=== PATIENT | female | born 1980 | race Caucasian/White ===

== ENCOUNTER 2016-07-13 02:48 | Emergency (ER) | payer OTHER ==
[~2016-07-13] VITALS: Ht 162.6 cm; Wt 115.6 kg
[~2016-07-13 02:48] MED LIST: ABILIFY5 MG PO; ACTOS15 MG PO; ADVAIR 250/501 DISK IH; ADVAIR HFA120 INHALA IH; ALBUTEROL17 GM IH; ANTI-DIARRHEA2 MG PO; AUGMENTIN875 MG PO; BACTRIM,SEPT1 TABLET PO; BENTYL10 MG PO; BENTYL20 MG PO; BRINTELLIX10 MG PO; BUPROPION XL300 MG PO; CEFTIN500 MG PO; CIPRO500 MG PO; CLONAZEPAM1 MG PO; Celexa PO; DELTASONE20 M1 PO; DESYREL100 MG PO; DICYCLOMINE HCL20 MG PO; DILAUDID2 MG PO; DURICEF500 MG PO; EFFEXOR XR150 MG PO; EFFEXOR75 MG PO; Effexor XR PO; FENOFIBRIC ACI135 MG PO; FLAGYL500 MG PO; FLEXERIL10 MG PO; FLOMAX0.4 MG PO; GLUCOPHAGE1000 MG PO; GLUCOPHAGE500 MG PO; Glucophage PO; HYDROCODON-ACE1 EAC7 PO; HYDROMORPHONE HC2 MG PO; JANUVIA100 MG PO; JANUVIA25 M1 PO; KEFLEX500 MG PO; KLONOPIN1 MG PO; LEVAQUIN500 MG PO; LEVOTHYROXINE150 MCG PO; LEVOTHYROXINE50 MCG PO; LISINOPRIL5 MG PO; LOMOTIL TABLET1 EACH PO; Levothroid,Synthroid PO; MEDROL DOSEPAK4 MG PO; METFORMIN HCL1000 MG PO; METFORMIN HCL500 MG PO; MORPHINE SULFAT30 M1 PO; MOTRIN600 MG PO; MS Contin PO; MS Contin,Oramorph S PO; MUCINEX DM ER1 EAC1 PO; Medrol Dosepak PO; NAPROSYN500 MG PO; NAPROXEN500 MG PO; PERCOCET 5/31 TABLET PO; PHENTERMINE H37.5 MG PO; PIOGLITAZONE HC30 MG PO; PREDNISONE10 MG PO; PREDNISONE20 MG PO; PREMARIN0.3 MG PO; PREMARIN0.625 MG PO; PRINIVIL5 MG PO; PROVENTIL,2.5 MG/0.5 IH; PROVENTIL,2.5 MG/3 M IH; PYRIDIUM100 MG PO; Percocet 5/325,Endoc PO; RECTASMOOTHE30 GM TP; REGLAN10 MG PO; ROBITUSSIN AC,T10 ML PO; Reglan PO; SYNTHROID75 MCG PO; TAMIFLU75 MG PO; TESSALON PERLE100 MG PO; TESSALON200 MG PO; TOPAMAX100 MG PO; TOPAMAX50 MG PO; TORADOL10 MG PO; TRAMADOL HCL50 MG PO; TRILIPIX135 MG PO; TRILIPIX45 MG PO; Tylenol Regular Stre PO; VENTOLIN HFA18 GM IH; WELCHOL625 MG PO; WELLBUTRIN SR150 MG PO; WELLBUTRIN XL150 MG PO; WELLBUTRIN XL300 MG PO; ZITHROMAX Z-PA250 MG PO; ZOFRAN ODT4 MG PO; ZOFRAN ODT8 MG PO; ZOFRAN4 MG PO; Zithromax PO; Zofran PO
[2016-07-13 03:14] LABS: HEMATOCRIT 36.7 % (36.0-46.0); MCH 27.3 PG (29.0-34.0); MCHC 33.2 G/DL (30.0-36.0); MCV 82.1 FL (83-99); PLATELET COUNT 285 K/uL (156-360); RBC DIS.WIDTH-CV 13.5 % (11.8-14.6); RBC DIS.WIDTH-SD 39.1 % (39-53); RED BLOOD COUNT 4.47 M/uL (3.80-5.20); WHITE BLOOD COUNT 8.1 K/uL (4.1-10.2)
[2016-07-13 03:22] LABS: CHLORIDE 101 mEq/L (99-109); POTASSIUM 3.7 mEq/L (3.7-5.4); SODIUM 136 mEq/L (136-147)
[2016-07-13 03:24] LABS: GLUCOSE 249 mg/dL (70-99)
[2016-07-13 03:25] LABS: ANION GAP 10 MEQ/L (2-14)
[2016-07-13 03:26] LABS: TOTAL BILIRUBIN 0.3 mg/dL (0.0-1.0)
[2016-07-13 03:27] LABS: ALKALINE PHOSPHATASE 74 IU/L (3-129)
[2016-07-13 03:28] LABS: GFR ESTIMATE (CALCULATED) > 59 mL/min/
[2016-07-13 03:29] LABS: UREA NITROGEN (BUN) 16 mg/dL (9-23)
[2016-07-13 03:36] LABS: QUANTITATIVE HCG < 4.0 MIU/ML
[2016-07-13 03:52] LABS: LIPASE 49 U/L (1.0-51.0)
[2016-07-13 04:09] LABS: ADD MIUA? YES; BILIRUBIN NEGATIVE; BLOOD NEGATIVE; COLOR YELLOW ((YELLOW)); GLUCOSE (STRIP) 100; KETONES NEGATIVE; LEUKOCYTES NEGATIVE; NITRITE NEGATIVE; PROTEIN (STRIP) >=300; SPECIFIC GRAVITY 1.029 (1.000-1.030); UROBILINOGEN 0.2 MG/DL (0.2-1.0)
[2016-07-13 04:43] LABS: EPITHELIAL CELLS 1+; RED BLOOD CELLS NONE SEEN /HPF (0-5); WHITE BLOOD CELLS 0-5 /HPF (0-5)
[2016-07-13 04:44] LABS: BACTERIA 1+; CASTS NONE SEEN /LPF; CRYSTALS NONE SEEN; MUCUS 2+; UCUL ADDED? NO
[2016-07-13 05:00] VITALS: BP 110/54
[2016-07-13] MEDS ORDERED: TRAMADOL HCL50 MG PO (05:09)
[2016-07-13] MEDS ORDERED: ZOFRAN8 MG PO (05:09)
[2016-07-13 05:12] LABS: INFLUENZA A VIRAL ANTIGEN NEGATIVE; INFLUENZA B VIRAL ANTIGEN NEGATIVE
== END 2016-07-13 05:54 | disposition home or self-care (01) ==
LOC: EME 02:48
PROVIDERS: Emergency Medicine
DX: M54.5 Low back pain (principal); R10.9 Unspecified abdominal pain; E86.0 Dehydration; E03.9 Hypothyroidism, unspecified; J45.909 Unspecified asthma, uncomplicated; E11.9 Type 2 diabetes mellitus without complications; Z79.4 Long term (current) use of insulin; Z87.442 Personal history of urinary calculi; Z88.8 Allergy status to other drugs, medicaments and biological substances; Z88.6 Allergy status to analgesic agent
CPT/HCPCS: 72131; 74177; 80053; 81003; 83690; 84702; 85027; 87502; 99281; 99285; J2270; J2405; J7030

== ENCOUNTER 2016-08-19 22:12 | Emergency (ER) | payer OTHER ==
[~2016-08-19] VITALS: Ht 162.6 cm; Wt 115.4 kg
[~2016-08-19 22:12] MED LIST changes: +ZOFRAN8 MG PO
[2016-08-19 22:41] LABS: HEMATOCRIT 34.8 % (36.0-46.0); MCH 27.4 PG (29.0-34.0); MCV 82.9 FL (83-99); MEAN PLAT.VOLUME 10.1 uM^3 (9.5-12.4); PLATELET COUNT 264 K/uL (156-360); RBC DIS.WIDTH-CV 13.5 % (11.8-14.6); RBC DIS.WIDTH-SD 39.5 % (39-53); WHITE BLOOD COUNT 7.8 K/uL (4.1-10.2)
[2016-08-19 22:50] LABS: CHLORIDE 105 mEq/L (99-109); SODIUM 138 mEq/L (136-147)
[2016-08-19 22:52] LABS: GLUCOSE 291 mg/dL (70-99)
[2016-08-19 22:53] LABS: ANION GAP 11 MEQ/L (2-14)
[2016-08-19 22:54] LABS: TOTAL BILIRUBIN 0.2 mg/dL (0.0-1.0)
[2016-08-19 22:55] LABS: ALKALINE PHOSPHATASE 68 IU/L (3-129)
[2016-08-19 22:56] LABS: GFR ESTIMATE (CALCULATED) > 59 mL/min/
[2016-08-19 22:57] LABS: UREA NITROGEN (BUN) 13 mg/dL (9-23)
[2016-08-19 23:06] LABS: QUANTITATIVE HCG < 4.0 MIU/ML
[2016-08-20 00:28] LABS: ADD MIUA? YES; BILIRUBIN NEGATIVE; BLOOD LARGE; COLOR YELLOW ((YELLOW)); GLUCOSE (STRIP) >=500; KETONES NEGATIVE; LEUKOCYTES NEGATIVE; NITRITE NEGATIVE; PROTEIN (STRIP) 100; SPECIFIC GRAVITY 1.023 (1.000-1.030); UROBILINOGEN 0.2 MG/DL (0.2-1.0)
[2016-08-20 00:38] LABS: BACTERIA NONE SEEN /HPF; EPITHELIAL CELLS RARE /HPF; MUCUS TRACE /LPF; RED BLOOD CELLS TNTC /HPF (0-5); UCUL ADDED? NO; WHITE BLOOD CELLS 15-20 /HPF (0-5)
[2016-08-20] MEDS ORDERED: KEFLEX500 MG PO (01:35)
[2016-08-20] MEDS ORDERED: PYRIDIUM100 MG PO (01:35)
[2016-08-20 01:46] VITALS: BP 159/93
[2016-08-21] MEDS ORDERED: PERCOCET 5/31 TABLET PO (00:44)
== END 2016-08-20 02:01 | disposition home or self-care (01) ==
LOC: EME 22:12 → RME 22:12
DX: N30.00 Acute cystitis without hematuria (principal); I10 Essential (primary) hypertension; E11.9 Type 2 diabetes mellitus without complications; J45.909 Unspecified asthma, uncomplicated; E03.9 Hypothyroidism, unspecified; Z79.890 Hormone replacement therapy; Z87.442 Personal history of urinary calculi
CPT/HCPCS: 74176; 80053; 81003; 84702; 85027; 99281; 99285; J3010

== ENCOUNTER 2016-08-20 20:00 | Emergency (ER) | payer OTHER ==
[~2016-08-20] VITALS: Ht 162.6 cm; Wt 90.9 kg
[2016-08-20 22:03] LABS: BILIRUBIN SMALL; BLOOD LARGE; COLOR BLOODY ((YELLOW)); GLUCOSE (STRIP) 2000 OR MORE; KETONES NEGATIVE; PH, URINE 6.5 (5-8); PROTEIN (STRIP) 100; SPECIFIC GRAVITY 1.025 (1.000-1.030)
[2016-08-20 22:04] LABS: ADD MIUA? YES; LEUKOCYTES NEGATIVE; NITRITE NEGATIVE; UROBILINOGEN 0.2 MG/DL (0.2-1.0)
[2016-08-20 22:08] LABS: CASTS NONE SEEN /LPF; EPITHELIAL CELLS NONE SEEN /HPF; MUCUS NONE SEEN /LPF; RED BLOOD CELLS TNTC /HPF (0-5); WHITE BLOOD CELLS 0-5 /HPF (0-5)
[2016-08-20 22:09] LABS: BACTERIA RARE /HPF; UCUL ADDED? NO
[2016-08-20 22:48] LABS: HEMATOCRIT 35.1 % (36.0-46.0); MCH 27.8 PG (29.0-34.0); MCHC 33.9 G/DL (30.0-36.0); PLATELET COUNT 270 K/uL (156-360); RBC DIS.WIDTH-CV 13.3 % (11.8-14.6); RBC DIS.WIDTH-SD 38.4 % (39-53); RED BLOOD COUNT 4.28 M/uL (3.80-5.20); WHITE BLOOD COUNT 8.1 K/uL (4.1-10.2)
[2016-08-20 22:56] LABS: CHLORIDE 105 mEq/L (99-109); SODIUM 139 mEq/L (136-147)
[2016-08-20 22:58] LABS: GLUCOSE 163 mg/dL (70-99)
[2016-08-20 22:59] LABS: ANION GAP 12 MEQ/L (2-14)
[2016-08-20 23:01] LABS: TOTAL BILIRUBIN 0.3 mg/dL (0.0-1.0)
[2016-08-20 23:02] LABS: ALKALINE PHOSPHATASE 68 IU/L (3-129); GFR ESTIMATE (CALCULATED) > 59 mL/min/
[2016-08-20 23:03] LABS: UREA NITROGEN (BUN) 14 mg/dL (9-23)
[2016-08-21] MEDS ORDERED: PERCOCET 5/31 TABLET PO (00:44)
[2016-08-21 01:09] VITALS: BP 118/68
== END 2016-08-21 01:09 | disposition home or self-care (01) ==
LOC: EME 20:00 → RME 20:00
PROVIDERS: Physician Assistant
DX: R31.9 Hematuria, unspecified (principal); M54.9 Dorsalgia, unspecified; Z87.442 Personal history of urinary calculi; E03.9 Hypothyroidism, unspecified; J45.909 Unspecified asthma, uncomplicated; Z79.84 Long term (current) use of oral hypoglycemic drugs; E11.9 Type 2 diabetes mellitus without complications
CPT/HCPCS: 74177; 80053; 81003; 85027; 87086; 99281; 99284; J2405; J3010; J7030

== ENCOUNTER 2016-08-22 22:32 | Inpatient (IN) | payer OTHER ==
[~2016-08-22] VITALS: Ht 162.6 cm; Wt 113.7 kg
[2016-08-23 02:51] LABS: HEMATOCRIT 34.7 % (36.0-46.0); MCH 27.6 PG (29.0-34.0); MCHC 33.4 G/DL (30.0-36.0); MCV 82.6 FL (83-99); MEAN PLAT.VOLUME 10.2 uM^3 (9.5-12.4); PLATELET COUNT 285 K/uL (156-360); RBC DIS.WIDTH-CV 13.4 % (11.8-14.6); RBC DIS.WIDTH-SD 38.9 % (39-53); WHITE BLOOD COUNT 7.5 K/uL (4.1-10.2)
[2016-08-23 03:10] LABS: CHLORIDE 103 mEq/L (99-109); POTASSIUM 4.1 mEq/L (3.7-5.4); SODIUM 139 mEq/L (136-147)
[2016-08-23 03:11] LABS: GLUCOSE 168 mg/dL (70-99)
[2016-08-23 03:13] LABS: ANION GAP 11 MEQ/L (2-14)
[2016-08-23 03:15] LABS: GFR ESTIMATE (CALCULATED) > 59 mL/min/
[2016-08-23 03:16] LABS: UREA NITROGEN (BUN) 13 mg/dL (9-23)
[2016-08-23 03:46] LABS: INTERNAL CONTROL VALID? YES
[2016-08-23 03:56] LABS: ADD MIUA? YES; BILIRUBIN NEGATIVE; BLOOD SMALL; COLOR AMBER ((YELLOW)); GLUCOSE (STRIP) NEGATIVE; KETONES NEGATIVE; LEUKOCYTES NEGATIVE; NITRITE POSITIVE; PROTEIN (STRIP) 100; SPECIFIC GRAVITY 1.016 (1.000-1.030)
[2016-08-23 04:00] LABS: BACTERIA RARE /HPF; EPITHELIAL CELLS RARE /HPF; MUCUS TRACE /LPF; RED BLOOD CELLS 20-30 /HPF (0-5); UCUL ADDED? NO
[2016-08-23 05:50] VITALS: BP 123/75
[2016-08-23 06:58] VITALS: BP 131/75
[2016-08-23 11:04] VITALS: BP 141/78
[2016-08-23 12:04] LABS: POINT-OF-CARE METER ID UU14162508
[2016-08-23 16:16] VITALS: BP 136/71
[2016-08-23] MEDS ORDERED: PREMARIN1.25 MG PO (16:16)
[2016-08-23 16:33] LABS: POINT-OF-CARE METER ID UU14162508
[2016-08-23 20:00] VITALS: BP 120/78
[2016-08-23 21:50] LABS: POINT-OF-CARE METER ID UU14162508
[2016-08-23 23:53] VITALS: BP 112/59
[2016-08-24 03:52] VITALS: BP 137/76
[2016-08-24 07:24] LABS: ALKALINE PHOSPHATASE 52 IU/L (3-129); ANION GAP 9 MEQ/L (2-14); CHLORIDE 105 MEQ/L (99-109); GFR ESTIMATE (CALCULATED) > 59 mL/min/; GLUCOSE 162 mg/dL (70-99); POTASSIUM 4.1 MEQ/L (3.7-5.4); SAMPLE HEMOLYSIS CHECK 0; SAMPLE ICTERIC CHECK 0; SAMPLE LIPEMIA CHECK 0; SODIUM 141 MEQ/L (136-147); TOTAL BILIRUBIN 0.2 MG/DL (0.0-1.0); UREA NITROGEN (BUN) 12 mg/dL (9-23)
[2016-08-24 07:37] LABS: HEMATOCRIT 31.9 % (36.0-46.0); MCH 27.9 PG (29.0-34.0); MCHC 32.9 G/DL (30.0-36.0); MCV 84.6 FL (83-99); MEAN PLAT.VOLUME 10.5 uM^3 (9.5-12.4); PLATELET COUNT 238 K/uL (156-360); RBC DIS.WIDTH-CV 13.7 % (11.8-14.6); RBC DIS.WIDTH-SD 41.3 % (39-53); RED BLOOD COUNT 3.77 M/uL (3.80-5.20)
[2016-08-24 07:38] LABS: WHITE BLOOD COUNT 4.9 K/uL (4.1-10.2)
[2016-08-24 07:55] VITALS: BP 123/70
[2016-08-24 12:00] VITALS: BP 124/65
[2016-08-24 17:16] VITALS: BP 123/63
[2016-08-24] MEDS ORDERED: BRINTELLIX20 MG PO (21:03)
[2016-08-24 23:40] VITALS: BP 136/88
[2016-08-25 07:44] LABS: EOSINOPHIL (%) 3.8 % (0-5); EOSINOPHIL COUNT 0.2 K/uL (0-0.3); HEMATOCRIT 34.5 % (36.0-46.0); IMMATURE GRANULOCYTE (%) 0.5 % (0.0-0.7); LYMPHOCYTE COUNT 1.9 K/uL (1.0-2.8); MCHC 31.9 G/DL (30.0-36.0); MCV 84.8 FL (83-99); MONOCYTE (%) 5.2 % (3-12); MONOCYTE COUNT 0.3 K/uL (0-0.8); NEUTROPHIL (%) 57.9 % (45-76); NEUTROPHIL COUNT 3.3 K/uL (1.8-6.4); PLATELET COUNT 251 K/uL (156-360); RBC DIS.WIDTH-CV 13.7 % (11.8-14.6); RBC DIS.WIDTH-SD 41.9 % (39-53); RED BLOOD COUNT 4.07 M/uL (3.80-5.20); WHITE BLOOD COUNT 5.8 K/uL (4.1-10.2)
[2016-08-25] MEDS ORDERED: KEFLEX500 MG PO (08:06)
[2016-08-25] MEDS ORDERED: ZOFRAN4 MG PO (08:06)
[2016-08-25 08:08] LABS: ANION GAP 11 MEQ/L (2-14); CHLORIDE 103 MEQ/L (99-109); GFR ESTIMATE (CALCULATED) > 59 mL/min/; GLUCOSE 160 mg/dL (70-99); MAGNESIUM 1.6 mg/dl (1.3-2.7); POTASSIUM 4.1 MEQ/L (3.7-5.4); SAMPLE HEMOLYSIS CHECK 0; SAMPLE ICTERIC CHECK 0; SAMPLE LIPEMIA CHECK 0; SODIUM 140 MEQ/L (136-147); UREA NITROGEN (BUN) 13 mg/dL (9-23)
[2016-08-25 08:15] VITALS: BP 116/65
== END 2016-08-25 09:54 | disposition home or self-care (01) | DRG 690 ==
LOC: EME 22:32 → EDOF 08-23 04:46 → 2EAST 08-23 04:46
PROVIDERS: Emergency Medicine; Internal Medicine
DX: N12 Tubulo-interstitial nephritis, not specified as acute or chronic (principal); K21.9 Gastro-esophageal reflux disease without esophagitis; E03.9 Hypothyroidism, unspecified; M54.9 Dorsalgia, unspecified; E11.9 Type 2 diabetes mellitus without complications; E66.01 Morbid (severe) obesity due to excess calories; J45.909 Unspecified asthma, uncomplicated; Z88.6 Allergy status to analgesic agent; Z91.018 Allergy to other foods; Z68.41 Body mass index [BMI] 40.0-44.9, adult
CPT/HCPCS: 80048; 80053; 81003; 82948; 83605; 83735; 84703; 85025; 85027; 87040; 87086; 94640; 94640 76; 99202; 99281; 99285; J0696; J1644; J1815; J2270; J2405; J7030; J7050

== ENCOUNTER 2016-08-31 20:40 | Observation (INO) | payer OTHER ==
[~2016-08-31] VITALS: Ht 162.6 cm; Wt 114.0 kg
[~2016-08-31 20:40] MED LIST changes: +BRINTELLIX20 MG PO; +PREMARIN1.25 MG PO
[2016-08-31 21:22] LABS: ADD MIUA? YES; BILIRUBIN NEGATIVE; BLOOD LARGE; COLOR YELLOW ((YELLOW)); GLUCOSE (STRIP) >=500; KETONES NEGATIVE; LEUKOCYTES NEGATIVE; NITRITE NEGATIVE; PROTEIN (STRIP) 100; SPECIFIC GRAVITY 1.015 (1.000-1.030); UROBILINOGEN 0.2 MG/DL (0.2-1.0)
[2016-08-31 21:26] LABS: HEMATOCRIT 34.6 % (36.0-46.0); MCH 27.9 PG (29.0-34.0); MCHC 33.8 G/DL (30.0-36.0); MCV 82.4 FL (83-99); PLATELET COUNT 300 K/uL (156-360); RBC DIS.WIDTH-CV 13.5 % (11.8-14.6); RBC DIS.WIDTH-SD 39.1 % (39-53); WHITE BLOOD COUNT 7.8 K/uL (4.1-10.2)
[2016-08-31 21:29] LABS: CHLORIDE 103 mEq/L (99-109); SODIUM 138 mEq/L (136-147)
[2016-08-31 21:31] LABS: GLUCOSE 293 mg/dL (70-99)
[2016-08-31 21:32] LABS: ANION GAP 12 MEQ/L (2-14)
[2016-08-31 21:33] LABS: TOTAL BILIRUBIN 0.1 mg/dL (0.0-1.0)
[2016-08-31 21:34] LABS: ALKALINE PHOSPHATASE 67 IU/L (3-129)
[2016-08-31 21:35] LABS: GFR ESTIMATE (CALCULATED) > 59 mL/min/
[2016-08-31 21:36] LABS: UREA NITROGEN (BUN) 16 mg/dL (9-23)
[2016-08-31 21:37] LABS: BACTERIA 1+ /HPF; CASTS NONE SEEN /LPF; EPITHELIAL CELLS 1+ /HPF; MUCUS NONE SEEN /LPF; RED BLOOD CELLS TNTC /HPF (0-5); UCUL ADDED? NO; WHITE BLOOD CELLS RARE /HPF (0-5)
[2016-08-31 21:43] LABS: QUANTITATIVE HCG < 4.0 MIU/ML
[2016-09-01] MEDS ORDERED: KENALOG,ARISTOC80 GM TP (00:21)
[2016-09-01] MEDS ORDERED: TRADJENTA5 MG PO (00:22)
[2016-09-01 01:44] VITALS: BP 119/72
[2016-09-01 03:49] VITALS: BP 136/69
[2016-09-01 07:44] VITALS: BP 108/65
[2016-09-01 11:28] VITALS: BP 124/74
[2016-09-01 16:39] VITALS: BP 119/75
[2016-09-01 19:52] VITALS: BP 139/56
[2016-09-02 00:20] VITALS: BP 107/55
[2016-09-02 04:05] VITALS: BP 103/57
[2016-09-02 08:25] VITALS: BP 119/75
[2016-09-02] MEDS ORDERED: TRAMADOL HCL50 MG PO (08:35)
[2016-09-02] MEDS ORDERED: RELAFEN750 MG PO (08:35)
[2016-09-02] MEDS ORDERED: CIPRO500 MG PO (08:35)
== END 2016-09-02 11:18 | disposition home or self-care (01) ==
LOC: EME 20:40 → EDOF 09-01 00:11 → 5WEST 09-01 00:11 → EDOF 09-01 00:11 → 5WEST 09-01 01:21
DX: M54.9 Dorsalgia, unspecified (principal); R10.9 Unspecified abdominal pain; J45.909 Unspecified asthma, uncomplicated; E66.01 Morbid (severe) obesity due to excess calories; Z68.41 Body mass index [BMI] 40.0-44.9, adult; E11.9 Type 2 diabetes mellitus without complications; E03.9 Hypothyroidism, unspecified; D53.9 Nutritional anemia, unspecified; R31.9 Hematuria, unspecified; G43.909 Migraine, unspecified, not intractable, without status migrainosus; K21.9 Gastro-esophageal reflux disease without esophagitis
CPT/HCPCS: 74000; 74176; 80053; 81003; 83605; 84702; 85027; 87040; 94640; 94640 76; 99202; 99281; 99285; G0378; J0744; J1170; J2405; J7030

== ENCOUNTER 2016-11-11 08:41 | Emergency (ER) | payer OTHER ==
[~2016-11-11] VITALS: Ht 162.6 cm; Wt 113.5 kg
[~2016-11-11 08:41] MED LIST changes: +KENALOG,ARISTOC80 GM TP; +RELAFEN750 MG PO; +TRADJENTA5 MG PO
[2016-11-11 09:33] LABS: ADD MIUA? YES; BILIRUBIN NEGATIVE; BLOOD NEGATIVE; COLOR YELLOW ((YELLOW)); GLUCOSE (STRIP) 50; KETONES NEGATIVE; LEUKOCYTES NEGATIVE; NITRITE NEGATIVE; PROTEIN (STRIP) 100; UROBILINOGEN 0.2 MG/DL (0.2-1.0)
[2016-11-11 09:35] LABS: BACTERIA NONE SEEN /HPF; EPITHELIAL CELLS RARE /HPF; MUCUS TRACE /LPF; RED BLOOD CELLS 0-5 /HPF (0-5); UCUL ADDED? NO; WHITE BLOOD CELLS 0-5 /HPF (0-5)
[2016-11-11 10:07] LABS: HEMATOCRIT 37.5 % (36.0-46.0); MCH 27.2 PG (29.0-34.0); MEAN PLAT.VOLUME 10.8 uM^3 (9.5-12.4); PLATELET COUNT 201 K/uL (156-360); RBC DIS.WIDTH-SD 40.1 % (39-53); RED BLOOD COUNT 4.41 M/uL (3.80-5.20); WHITE BLOOD COUNT 6.2 K/uL (4.1-10.2)
[2016-11-11 10:16] LABS: CHLORIDE 103 mEq/L (99-109); POTASSIUM 4.2 mEq/L (3.7-5.4); SODIUM 136 mEq/L (136-147)
[2016-11-11 10:18] LABS: GLUCOSE 214 mg/dL (70-99)
[2016-11-11 10:19] LABS: ANION GAP 10 MEQ/L (2-14)
[2016-11-11 10:20] LABS: TOTAL BILIRUBIN 0.3 mg/dL (0.0-1.0)
[2016-11-11 10:21] LABS: ALKALINE PHOSPHATASE 63 IU/L (3-129)
[2016-11-11 10:22] LABS: GFR ESTIMATE (CALCULATED) > 59 mL/min/
[2016-11-11 10:23] LABS: UREA NITROGEN (BUN) 12 mg/dL (9-23)
[2016-11-11 10:25] LABS: LIPASE 46 U/L (1.0-51.0)
[2016-11-11 10:32] LABS: QUANTITATIVE HCG < 4.0 MIU/ML
[2016-11-11] MEDS ORDERED: BENTYL10 MG PO (13:06)
[2016-11-11] MEDS ORDERED: ZOFRAN ODT4 MG PO (13:06)
[2016-11-11 13:33] VITALS: BP 112/81
== END 2016-11-11 13:34 | disposition home or self-care (01) ==
LOC: EME 08:41
DX: R51 Headache (principal); R11.10 Vomiting, unspecified; R19.7 Diarrhea, unspecified; E03.9 Hypothyroidism, unspecified; Z87.442 Personal history of urinary calculi; Z88.6 Allergy status to analgesic agent
CPT/HCPCS: 74177; 80053; 81003; 83690; 84702; 85027; 99281; 99284; J1200; J2765; J3010; J7030

== ENCOUNTER 2016-12-02 19:02 | Emergency (ER) | payer OTHER ==
[~2016-12-02] VITALS: Ht 162.6 cm; Wt 113.6 kg
[2016-12-02 19:46] LABS: ADD MIUA? YES; BILIRUBIN NEGATIVE; BLOOD NEGATIVE; COLOR YELLOW ((YELLOW)); GLUCOSE (STRIP) >=500; KETONES NEGATIVE; LEUKOCYTES NEGATIVE; NITRITE NEGATIVE; PROTEIN (STRIP) 100; SPECIFIC GRAVITY 1.023 (1.000-1.030); UROBILINOGEN 0.2 MG/DL (0.2-1.0)
[2016-12-02 19:51] LABS: BACTERIA RARE /HPF; EPITHELIAL CELLS RARE /HPF; MUCUS TRACE /LPF; RED BLOOD CELLS 0-5 /HPF (0-5); WHITE BLOOD CELLS 0-5 /HPF (0-5)
[2016-12-02 20:00] LABS: CHLORIDE 101 mEq/L (99-109); POTASSIUM 3.8 mEq/L (3.7-5.4); SODIUM 137 mEq/L (136-147)
[2016-12-02 20:02] LABS: GLUCOSE 350 mg/dL (70-99)
[2016-12-02 20:04] LABS: ANION GAP 12 MEQ/L (2-14); TOTAL BILIRUBIN 0.2 mg/dL (0.0-1.0)
[2016-12-02 20:05] LABS: HEMATOCRIT 35.3 % (36.0-46.0); MCH 27.4 PG (29.0-34.0); MCHC 32.6 G/DL (30.0-36.0); MCV 84.2 FL (83-99); MEAN PLAT.VOLUME 10.3 uM^3 (9.5-12.4); PLATELET COUNT 268 K/uL (156-360); RBC DIS.WIDTH-CV 13.1 % (11.8-14.6); RBC DIS.WIDTH-SD 39.6 % (39-53); RED BLOOD COUNT 4.19 M/uL (3.80-5.20); WHITE BLOOD COUNT 7.9 K/uL (4.1-10.2)
[2016-12-02 20:06] LABS: ALKALINE PHOSPHATASE 75 IU/L (3-129); GFR ESTIMATE (CALCULATED) > 59 mL/min/
[2016-12-02 20:07] LABS: UREA NITROGEN (BUN) 13 mg/dL (9-23)
[2016-12-02 20:10] LABS: LIPASE 62 U/L (1.0-51.0)
[2016-12-02 20:18] LABS: QUANTITATIVE HCG < 4.0 MIU/ML
[2016-12-02] MEDS ORDERED: KEFLEX500 MG PO (23:41)
[2016-12-02 23:50] VITALS: BP 131/81
== END 2016-12-02 23:51 | disposition home or self-care (01) ==
LOC: EME 19:02 → EXP 19:02
PROVIDERS: Physician Assistant
DX: L08.9 Local infection of the skin and subcutaneous tissue, unspecified (principal); B95.8 Unspecified staphylococcus as the cause of diseases classified elsewhere; Z91.018 Allergy to other foods; Z88.8 Allergy status to other drugs, medicaments and biological substances; Z88.5 Allergy status to narcotic agent; Z88.6 Allergy status to analgesic agent
CPT/HCPCS: 74176; 80053; 81003; 83690; 84702; 85027; 99281; 99284

== ENCOUNTER 2016-12-04 21:03 | Emergency (ER) | payer OTHER ==
[~2016-12-04] VITALS: Ht 162.6 cm; Wt 113.6 kg
[2016-12-04 21:37] LABS: HEMATOCRIT 36.2 % (36.0-46.0); MCH 27.9 PG (29.0-34.0); MCHC 33.4 G/DL (30.0-36.0); MCV 83.6 FL (83-99); MEAN PLAT.VOLUME 10.2 uM^3 (9.5-12.4); PLATELET COUNT 284 K/uL (156-360); RBC DIS.WIDTH-SD 39.3 % (39-53); RED BLOOD COUNT 4.33 M/uL (3.80-5.20); WHITE BLOOD COUNT 8.2 K/uL (4.1-10.2)
[2016-12-04 21:45] LABS: CHLORIDE 99 mEq/L (99-109); POTASSIUM 3.9 mEq/L (3.7-5.4); SODIUM 136 mEq/L (136-147)
[2016-12-04 21:46] LABS: GLUCOSE 261 mg/dL (70-99)
[2016-12-04 21:48] LABS: ANION GAP 12 MEQ/L (2-14)
[2016-12-04 21:50] LABS: GFR ESTIMATE (CALCULATED) > 59 mL/min/
[2016-12-04 21:51] LABS: UREA NITROGEN (BUN) 10 mg/dL (9-23)
[2016-12-04 21:54] LABS: CARBON DIOXIDE (BICARBONATE) 29.2 MEQ/L (20-31)
[2016-12-04 23:41] VITALS: BP 119/73
== END 2016-12-04 23:44 | disposition home or self-care (01) ==
LOC: EME 21:03
PROVIDERS: Physician Assistant
DX: R73.9 Hyperglycemia, unspecified (principal); R51 Headache; R07.9 Chest pain, unspecified; J45.909 Unspecified asthma, uncomplicated; F32.9 Major depressive disorder, single episode, unspecified; Z87.442 Personal history of urinary calculi; Z88.6 Allergy status to analgesic agent
CPT/HCPCS: 71020; 80048; 81003; 82010; 82803; 85027; 99281; 99284; J2765; J7030

== ENCOUNTER 2017-01-06 20:21 | Emergency (ER) | payer OTHER ==
[~2017-01-06] VITALS: Ht 162.6 cm; Wt 116.6 kg
[2017-01-06 21:53] LABS: HEMATOCRIT 33.5 % (36.0-46.0); MCH 27.9 PG (29.0-34.0); MCHC 33.4 G/DL (30.0-36.0); MCV 83.5 FL (83-99); PLATELET COUNT 248 K/uL (156-360); RBC DIS.WIDTH-CV 13.2 % (11.8-14.6); RED BLOOD COUNT 4.01 M/uL (3.80-5.20); WHITE BLOOD COUNT 7.5 K/uL (4.1-10.2)
[2017-01-06 22:03] LABS: CHLORIDE 104 mEq/L (99-109); POTASSIUM 3.8 mEq/L (3.7-5.4); SODIUM 139 mEq/L (136-147)
[2017-01-06 22:05] LABS: GLUCOSE 288 mg/dL (70-99)
[2017-01-06 22:07] LABS: ANION GAP 11 MEQ/L (2-14); TOTAL BILIRUBIN 0.2 mg/dL (0.0-1.0)
[2017-01-06 22:09] LABS: ALKALINE PHOSPHATASE 84 IU/L (3-129); GFR ESTIMATE (CALCULATED) > 59 mL/min/
[2017-01-06 22:10] LABS: UREA NITROGEN (BUN) 12 mg/dL (9-23)
[2017-01-06 22:15] LABS: TROP-I INTERPRETATION NEGATIVE; TROPONIN-I < 0.01 ng/mL (0.0-0.30)
[2017-01-06 22:18] LABS: QUANTITATIVE HCG < 4.0 MIU/ML
[2017-01-06 22:21] LABS: ADD MIUA? YES; BILIRUBIN NEGATIVE; BLOOD NEGATIVE; COLOR YELLOW ((YELLOW)); GLUCOSE (STRIP) >=500; KETONES NEGATIVE; LEUKOCYTES NEGATIVE; NITRITE NEGATIVE; PROTEIN (STRIP) 100; SPECIFIC GRAVITY 1.025 (1.000-1.030); UROBILINOGEN 0.2 MG/DL (0.2-1.0)
[2017-01-06 22:26] LABS: BACTERIA RARE /HPF; EPITHELIAL CELLS RARE /HPF; MUCUS TRACE /LPF; RED BLOOD CELLS 0-5 /HPF (0-5); UCUL ADDED? NO
[2017-01-07 00:57] LABS: TROP-I INTERPRETATION NEGATIVE; TROPONIN-I < 0.01 ng/mL (0.0-0.30)
[2017-01-07] MEDS ORDERED: MOTRIN800 MG PO (01:41)
[2017-01-07 02:34] VITALS: BP 129/83
== END 2017-01-07 02:34 | disposition home or self-care (01) ==
LOC: EME 20:21
PROVIDERS: Nurse Practitioner Family
DX: R07.9 Chest pain, unspecified (principal); F41.9 Anxiety disorder, unspecified; J45.909 Unspecified asthma, uncomplicated; E11.9 Type 2 diabetes mellitus without complications; Z79.84 Long term (current) use of oral hypoglycemic drugs; E03.9 Hypothyroidism, unspecified; K21.9 Gastro-esophageal reflux disease without esophagitis; F32.9 Major depressive disorder, single episode, unspecified; Z90.49 Acquired absence of other specified parts of digestive tract
CPT/HCPCS: 71020; 80053; 81003; 84484; 84702; 85027; 93005; 99281; 99284

== ENCOUNTER 2017-02-08 00:26 | Emergency (ER) | payer OTHER ==
[~2017-02-08] VITALS: Ht 162.6 cm; Wt 114.0 kg
[~2017-02-08 00:26] MED LIST changes: +MOTRIN800 MG PO
[2017-02-08 01:30] LABS: HEMATOCRIT 33.7 % (36.0-46.0); MCH 27.4 PG (29.0-34.0); MCHC 32.9 G/DL (30.0-36.0); MCV 83.2 FL (83-99); MEAN PLAT.VOLUME 10.2 uM^3 (9.5-12.4); PLATELET COUNT 225 K/uL (156-360); RBC DIS.WIDTH-CV 13.1 % (11.8-14.6); RBC DIS.WIDTH-SD 39.4 % (39-53); RED BLOOD COUNT 4.05 M/uL (3.80-5.20); WHITE BLOOD COUNT 6.4 K/uL (4.1-10.2)
[2017-02-08 01:38] LABS: PROTHROMBIN TIME 10.9 SEC (10.2-12.9)
[2017-02-08 01:41] LABS: CHLORIDE 99 mEq/L (99-109); POTASSIUM 3.8 mEq/L (3.7-5.4); SODIUM 137 mEq/L (136-147)
[2017-02-08 01:42] LABS: GLUCOSE 273 mg/dL (70-99)
[2017-02-08 01:44] LABS: ANION GAP 10 MEQ/L (2-14)
[2017-02-08 01:46] LABS: GFR ESTIMATE (CALCULATED) > 59 mL/min/
[2017-02-08 01:47] LABS: UREA NITROGEN (BUN) 13 mg/dL (9-23)
[2017-02-08 01:51] LABS: TROP-I INTERPRETATION NEGATIVE; TROPONIN-I < 0.01 ng/mL (0.0-0.30)
[2017-02-08 02:05] LABS: D-DIMER ELISA < 150.00 ng/mLDDU (<230)
[2017-02-08 02:59] VITALS: BP 142/85
== END 2017-02-08 02:58 | disposition home or self-care (01) ==
LOC: EME 00:26
PROVIDERS: Emergency Medicine
DX: R07.9 Chest pain, unspecified (principal); K21.9 Gastro-esophageal reflux disease without esophagitis; E11.9 Type 2 diabetes mellitus without complications; J45.909 Unspecified asthma, uncomplicated; Z79.84 Long term (current) use of oral hypoglycemic drugs; Z87.442 Personal history of urinary calculi; Z88.6 Allergy status to analgesic agent; F32.9 Major depressive disorder, single episode, unspecified; F41.9 Anxiety disorder, unspecified
CPT/HCPCS: 71020; 80048; 84484; 85027; 85379; 85610; 85730; 93005; 99281; 99284

== ENCOUNTER 2017-03-15 17:33 | Emergency (ER) | payer OTHER ==
[~2017-03-15] VITALS: Ht 162.6 cm; Wt 110.6 kg
[2017-03-15 18:46] LABS: HEMATOCRIT 38.6 % (36.0-46.0); MCH 27.5 PG (29.0-34.0); MCHC 33.2 G/DL (30.0-36.0); MCV 82.8 FL (83-99); PLATELET COUNT 283 K/uL (156-360); RBC DIS.WIDTH-CV 12.9 % (11.8-14.6); RBC DIS.WIDTH-SD 39.1 % (39-53); RED BLOOD COUNT 4.66 M/uL (3.80-5.20); WHITE BLOOD COUNT 8.1 K/uL (4.1-10.2)
[2017-03-15 18:56] LABS: CHLORIDE 105 mEq/L (99-109); POTASSIUM 3.8 mEq/L (3.7-5.4); SODIUM 138 mEq/L (136-147)
[2017-03-15 18:58] LABS: GLUCOSE 157 mg/dL (70-99)
[2017-03-15 19:00] LABS: ANION GAP 13 MEQ/L (2-14); TOTAL BILIRUBIN 0.3 mg/dL (0.0-1.0)
[2017-03-15 19:02] LABS: ALKALINE PHOSPHATASE 79 IU/L (3-129); GFR ESTIMATE (CALCULATED) > 59 mL/min/
[2017-03-15 19:03] LABS: UREA NITROGEN (BUN) 13 mg/dL (9-23)
[2017-03-15 19:13] LABS: QUANTITATIVE HCG < 4.0 MIU/ML
[2017-03-15 20:29] LABS: ADD MIUA? YES; BILIRUBIN NEGATIVE; BLOOD NEGATIVE; COLOR YELLOW ((YELLOW)); GLUCOSE (STRIP) NEGATIVE; KETONES NEGATIVE; LEUKOCYTES NEGATIVE; NITRITE NEGATIVE; PROTEIN (STRIP) >=500; SPECIFIC GRAVITY 1.026 (1.000-1.030); UROBILINOGEN 0.2 MG/DL (0.2-1.0)
[2017-03-15 20:34] LABS: INTERNAL CONTROL VALID? YES
[2017-03-15 20:40] LABS: BACTERIA RARE /HPF; EPITHELIAL CELLS RARE /HPF; HYALINE CASTS 0-5 /LPF; MUCUS TRACE /LPF; RED BLOOD CELLS 0-5 /HPF (0-5); UCUL ADDED? NO; WHITE BLOOD CELLS 0-5 /HPF (0-5)
[2017-03-15 21:08] LABS: C DIFF TOXIN NEGATIVE (NEGATIVE)
[2017-03-15 21:10] LABS: PROBE CHECK PASS; SPECIMEN PROCESSING CONTROL PASS
[2017-03-15] MEDS ORDERED: BENTYL10 MG PO (21:14)
[2017-03-15] MEDS ORDERED: ZOFRAN ODT4 MG PO (21:17)
[2017-03-15 21:59] VITALS: BP 118/69
== END 2017-03-15 22:00 | disposition home or self-care (01) ==
LOC: EME 17:33
PROVIDERS: Physician Assistant
DX: R10.84 Generalized abdominal pain (principal); R19.7 Diarrhea, unspecified; R11.2 Nausea with vomiting, unspecified; K76.0 Fatty (change of) liver, not elsewhere classified; R16.2 Hepatomegaly with splenomegaly, not elsewhere classified; Z90.49 Acquired absence of other specified parts of digestive tract; Z90.710 Acquired absence of both cervix and uterus; Z90.722 Acquired absence of ovaries, bilateral; Z79.890 Hormone replacement therapy; Z87.442 Personal history of urinary calculi; J45.909 Unspecified asthma, uncomplicated; E11.9 Type 2 diabetes mellitus without complications; Z79.84 Long term (current) use of oral hypoglycemic drugs
CPT/HCPCS: 74176; 80053; 81003; 83630; 84702; 85027; 87493; 87506; 99281; 99284; J2405; J3010; J7030

== ENCOUNTER 2017-03-22 21:37 | Emergency (ER) | payer OTHER ==
[~2017-03-22] VITALS: Ht 162.6 cm; Wt 112.4 kg
[2017-03-23] MEDS ORDERED: PREDNISONE20 MG PO
[2017-03-23 00:25] VITALS: BP 133/77
== END 2017-03-23 00:32 | disposition home or self-care (01) ==
LOC: EME 21:37 → RME 21:37
DX: J20.9 Acute bronchitis, unspecified (principal); J02.9 Acute pharyngitis, unspecified; J45.909 Unspecified asthma, uncomplicated; E11.9 Type 2 diabetes mellitus without complications; Z79.84 Long term (current) use of oral hypoglycemic drugs; Z90.710 Acquired absence of both cervix and uterus; Z90.722 Acquired absence of ovaries, bilateral; Z79.890 Hormone replacement therapy
CPT/HCPCS: 71020; 80048; 85027; 94640; 99281; 99283; J7512

== ENCOUNTER 2017-03-25 21:36 | Inpatient (IN) | payer OTHER ==
[~2017-03-25] VITALS: Ht 162.6 cm; Wt 114.1 kg
[2017-03-25 23:00] LABS: HEMATOCRIT 35.1 % (36.0-46.0); MCH 27.9 PG (29.0-34.0); MCV 84.4 FL (83-99); MEAN PLAT.VOLUME 10.3 uM^3 (9.5-12.4); PLATELET COUNT 262 K/uL (156-360); RBC DIS.WIDTH-CV 13.1 % (11.8-14.6); RED BLOOD COUNT 4.16 M/uL (3.80-5.20); WHITE BLOOD COUNT 6.4 K/uL (4.1-10.2)
[2017-03-25 23:08] LABS: CHLORIDE 102 mEq/L (99-109); POTASSIUM 3.7 mEq/L (3.7-5.4); SODIUM 136 mEq/L (136-147)
[2017-03-25 23:11] LABS: ANION GAP 22 MEQ/L (2-14)
[2017-03-25 23:13] LABS: GFR ESTIMATE (CALCULATED) > 59 mL/min/
[2017-03-25 23:14] LABS: UREA NITROGEN (BUN) 8 mg/dL (9-23)
[2017-03-25 23:34] LABS: GLUCOSE 412 mg/dL (70-99)
[2017-03-25 23:50] LABS: LIPASE 62 U/L (1.0-51.0)
[2017-03-25 23:53] LABS: ALKALINE PHOSPHATASE 82 IU/L (3-129); DIRECT BILIRUBIN < 0.1 mg/dL (0.0-0.3); MAGNESIUM 1.6 mg/dL (1.3-2.7)
[2017-03-25 23:54] LABS: TOTAL BILIRUBIN 0.1 mg/dL (0.0-1.0)
[2017-03-25 23:58] LABS: CARBON DIOXIDE (BICARBONATE) 26.7 MEQ/L (20-31)
[2017-03-26] MEDS ORDERED: IBUPROFEN800 MG PO (01:32)
[2017-03-26] MEDS ORDERED: ZOFRAN ODT4 MG PO (01:33)
[2017-03-26] MEDS ORDERED: DELTASONE20 M1 PO ×2 (01:34→01:35)
[2017-03-26] MEDS ORDERED: PREDNISONE20 MG PO (01:35)
[2017-03-26] MEDS ORDERED: GABAPENTIN300 MG PO (01:36)
[2017-03-26] MEDS ORDERED: NESINA25 MG PO (01:36)
[2017-03-26] MEDS ORDERED: GUAIFENESIN WI120 ML PO (01:37)
[2017-03-26] MEDS ORDERED: GLUCOPHAGE1000 MG PO (01:37)
[2017-03-26 01:50] LABS: POINT-OF-CARE METER ID UU14100415
[2017-03-26 01:56] LABS: CARBON DIOXIDE (BICARBONATE) 27.3 MEQ/L (20-31); CHLORIDE 103 mEq/L (99-109); POTASSIUM 3.1 mEq/L (3.7-5.4); SODIUM 137 mEq/L (136-147)
[2017-03-26 01:58] LABS: GLUCOSE 222 mg/dL (70-99)
[2017-03-26 01:59] LABS: ANION GAP 18 MEQ/L (2-14)
[2017-03-26 02:02] LABS: GFR ESTIMATE (CALCULATED) > 59 mL/min/
[2017-03-26 02:03] LABS: UREA NITROGEN (BUN) 9 mg/dL (9-23)
[2017-03-26 04:34] LABS: CHLORIDE 107 mEq/L (99-109); POTASSIUM 3.5 mEq/L (3.7-5.4); SODIUM 139 mEq/L (136-147)
[2017-03-26 04:36] LABS: GLUCOSE 161 mg/dL (70-99)
[2017-03-26 04:37] LABS: ANION GAP 16 MEQ/L (2-14)
[2017-03-26 04:40] LABS: GFR ESTIMATE (CALCULATED) > 59 mL/min/; UREA NITROGEN (BUN) 8 mg/dL (9-23)
[2017-03-26 04:45] VITALS: BP 125/74
[2017-03-26 06:38] LABS: POINT-OF-CARE METER ID UU14162508
[2017-03-26 07:10] LABS: Estimated Average Glucose 249 mg/dL (70-123); HEMOGLOBIN A1c (GLYCOHEMOGLOB) 10.3 % HGB (Below 5.7)
[2017-03-26 07:15] VITALS: BP 132/84
[2017-03-26 09:06] LABS: ANION GAP 13 MEQ/L (2-14); CHLORIDE 105 MEQ/L (99-109); POTASSIUM 4.2 MEQ/L (3.7-5.4); SAMPLE HEMOLYSIS CHECK 0; SAMPLE ICTERIC CHECK 0; SAMPLE LIPEMIA CHECK 0; SODIUM 139 MEQ/L (136-147)
[2017-03-26 09:11] LABS: GFR ESTIMATE (CALCULATED) > 59 mL/min/; UREA NITROGEN (BUN) 8 mg/dL (9-23)
[2017-03-26 09:14] LABS: GLUCOSE 298 mg/dL (70-99)
[2017-03-26 09:20] LABS: POINT-OF-CARE METER ID UU14208750
[2017-03-26 11:25] VITALS: BP 161/86
[2017-03-26 11:53] LABS: POINT-OF-CARE METER ID UU14208750
[2017-03-26 12:54] LABS: ANION GAP 17 MEQ/L (2-14); CHLORIDE 102 MEQ/L (99-109); POTASSIUM 4.5 MEQ/L (3.7-5.4); SAMPLE HEMOLYSIS CHECK 0; SAMPLE ICTERIC CHECK 0; SAMPLE LIPEMIA CHECK 1; SODIUM 137 MEQ/L (136-147)
[2017-03-26 13:13] LABS: GFR ESTIMATE (CALCULATED) > 59 mL/min/; UREA NITROGEN (BUN) 9 mg/dL (9-23)
[2017-03-26 13:14] LABS: GLUCOSE 430 mg/dL (70-99)
[2017-03-26 15:53] VITALS: BP 136/74
[2017-03-26 16:09] LABS: POINT-OF-CARE METER ID UU14162508
[2017-03-26 17:08] LABS: ANION GAP 21 MEQ/L (2-14); CHLORIDE 103 MEQ/L (99-109); POTASSIUM 4.8 MEQ/L (3.7-5.4); SAMPLE HEMOLYSIS CHECK 1; SAMPLE ICTERIC CHECK 0; SAMPLE LIPEMIA CHECK 0; SODIUM 139 MEQ/L (136-147)
[2017-03-26 17:14] LABS: GFR ESTIMATE (CALCULATED) > 59 mL/min/; GLUCOSE 357 mg/dL (70-99); UREA NITROGEN (BUN) 10 mg/dL (9-23)
[2017-03-26 19:43] VITALS: BP 148/89
[2017-03-26 20:47] LABS: ANION GAP 17 MEQ/L (2-14); CHLORIDE 100 MEQ/L (99-109); POTASSIUM 4.6 MEQ/L (3.7-5.4); SAMPLE HEMOLYSIS CHECK 0; SAMPLE ICTERIC CHECK 0; SAMPLE LIPEMIA CHECK 0; SODIUM 134 MEQ/L (136-147)
[2017-03-26 20:52] LABS: GFR ESTIMATE (CALCULATED) > 59 mL/min/; GLUCOSE 374 mg/dL (70-99); UREA NITROGEN (BUN) 12 mg/dL (9-23)
[2017-03-26 23:33] VITALS: BP 132/61
[2017-03-27 02:48] LABS: POINT-OF-CARE METER ID UU14162508
[2017-03-27 06:58] LABS: POINT-OF-CARE METER ID UU14162508
[2017-03-27 07:31] LABS: HEMATOCRIT 34.9 % (36.0-46.0); MCH 28.7 PG (29.0-34.0); MCHC 33.2 G/DL (30.0-36.0); MCV 86.4 FL (83-99); MEAN PLAT.VOLUME 10.6 uM^3 (9.5-12.4); PLATELET COUNT 227 K/uL (156-360); RBC DIS.WIDTH-CV 13.5 % (11.8-14.6); RBC DIS.WIDTH-SD 42.6 % (39-53); RED BLOOD COUNT 4.04 M/uL (3.80-5.20); WHITE BLOOD COUNT 9.8 K/uL (4.1-10.2)
[2017-03-27 07:34] VITALS: BP 128/77
[2017-03-27 08:09] LABS: ANION GAP 14 MEQ/L (2-14); CHLORIDE 100 MEQ/L (99-109); DIRECT BILIRUBIN 0.1 mg/dL (0.0-0.3); POTASSIUM 4.4 MEQ/L (3.7-5.4); SAMPLE HEMOLYSIS CHECK 0; SAMPLE ICTERIC CHECK 0; SAMPLE LIPEMIA CHECK 1; SODIUM 133 MEQ/L (136-147); TOTAL BILIRUBIN 0.3 MG/DL (0.0-1.0)
[2017-03-27 08:14] LABS: ALKALINE PHOSPHATASE 77 IU/L (3-129); GFR ESTIMATE (CALCULATED) > 59 mL/min/; GLUCOSE 338 mg/dL (70-99); UREA NITROGEN (BUN) 13 mg/dL (9-23)
[2017-03-27 11:57] LABS: POINT-OF-CARE METER ID UU14162508; POINT-OF-CARE USER ID PUTDRM
[2017-03-27 15:23] VITALS: BP 110/64
[2017-03-27 16:17] LABS: POINT-OF-CARE METER ID UU14208750; POINT-OF-CARE USER ID PUTDRM
[2017-03-27 21:49] LABS: POINT-OF-CARE METER ID UU14162508
[2017-03-27 23:54] VITALS: BP 108/64
[2017-03-28 03:23] LABS: POINT-OF-CARE METER ID UU14162508
[2017-03-28 06:37] LABS: POINT-OF-CARE METER ID UU14208750
[2017-03-28 06:54] LABS: ANION GAP 11 MEQ/L (2-14); CHLORIDE 100 MEQ/L (99-109); GFR ESTIMATE (CALCULATED) > 59 mL/min/; POTASSIUM 3.6 MEQ/L (3.7-5.4); SAMPLE HEMOLYSIS CHECK 0; SAMPLE ICTERIC CHECK 0; SAMPLE LIPEMIA CHECK 1; SODIUM 139 MEQ/L (136-147); UREA NITROGEN (BUN) 18 mg/dL (9-23)
[2017-03-28 06:55] LABS: GLUCOSE 124 mg/dL (70-99)
[2017-03-28 07:48] VITALS: BP 129/67
[2017-03-28] MEDS ORDERED: LANTUS 10100 UNITS/ SC (10:41)
[2017-03-28] MEDS ORDERED: NOVOLOG 10100 UNITS/ SC (10:52)
[2017-03-28 11:49] LABS: POINT-OF-CARE METER ID UU14162508
[2017-03-28] MEDS ORDERED: DIFLUCAN150 MG PO (16:12)
[2017-03-29] MEDS ORDERED: ZOFRAN ODT4 MG PO (18:23)
== END 2017-03-28 12:52 | disposition home or self-care (01) | DRG 202 ==
LOC: EME 21:36 → 2EAST 03-26 03:13 → EDOF 03-26 03:13 → ENRESERV 03-26 03:15 → 2EAST 03-26 04:33
PROVIDERS: Emergency Medicine; Hospitalist; Internal Medicine
DX: J45.41 Moderate persistent asthma with (acute) exacerbation (principal); J20.9 Acute bronchitis, unspecified; G47.33 Obstructive sleep apnea (adult) (pediatric); E11.65 Type 2 diabetes mellitus with hyperglycemia; T38.0X5A Adverse effect of glucocorticoids and synthetic analogues, initial encounter; E87.3 Alkalosis; E87.6 Hypokalemia; E03.9 Hypothyroidism, unspecified; E66.01 Morbid (severe) obesity due to excess calories; Z68.41 Body mass index [BMI] 40.0-44.9, adult; K76.0 Fatty (change of) liver, not elsewhere classified; D64.9 Anemia, unspecified; E86.0 Dehydration; K21.9 Gastro-esophageal reflux disease without esophagitis; E78.5 Hyperlipidemia, unspecified; F32.9 Major depressive disorder, single episode, unspecified; F41.9 Anxiety disorder, unspecified; G43.909 Migraine, unspecified, not intractable, without status migrainosus; Z79.84 Long term (current) use of oral hypoglycemic drugs; Z87.442 Personal history of urinary calculi; Z90.710 Acquired absence of both cervix and uterus; Z83.3 Family history of diabetes mellitus
CPT/HCPCS: 71020; 80048; 80048 91; 80076; 82010; 82803; 82948; 83036; 83690; 83735; 84100; 85027; 87651 90; 93005; 94640; 94640 76; 99202; 99281; 99285; J1650; J1815; J2060; J2930; J7030; J7050; J7512

== ENCOUNTER 2017-03-29 13:06 | Emergency (ER) | payer OTHER ==
[~2017-03-29] VITALS: Ht 162.6 cm; Wt 111.3 kg
[~2017-03-29 13:06] MED LIST changes: +DIFLUCAN150 MG PO; +GABAPENTIN300 MG PO; +GUAIFENESIN WI120 ML PO; +IBUPROFEN800 MG PO; +LANTUS 10100 UNITS/ SC; +NESINA25 MG PO; +NOVOLOG 10100 UNITS/ SC
[2017-03-29 13:43] LABS: HEMATOCRIT 37.8 % (36.0-46.0); MCH 27.4 PG (29.0-34.0); MCHC 32.8 G/DL (30.0-36.0); MCV 83.4 FL (83-99); RBC DIS.WIDTH-CV 13.3 % (11.8-14.6); RED BLOOD COUNT 4.53 M/uL (3.80-5.20); WHITE BLOOD COUNT 11.7 K/uL (4.1-10.2)
[2017-03-29 13:44] LABS: PLATELET COUNT 299 K/uL (156-360)
[2017-03-29 13:51] LABS: CHLORIDE 98 mEq/L (99-109); POTASSIUM 3.7 mEq/L (3.7-5.4); SODIUM 137 mEq/L (136-147)
[2017-03-29 13:54] LABS: GLUCOSE 207 mg/dL (70-99)
[2017-03-29 13:55] LABS: ANION GAP 21 MEQ/L (2-14)
[2017-03-29 13:56] LABS: TOTAL BILIRUBIN 0.2 mg/dL (0.0-1.0)
[2017-03-29 13:57] LABS: ALKALINE PHOSPHATASE 84 IU/L (3-129); GFR ESTIMATE (CALCULATED) > 59 mL/min/
[2017-03-29 13:58] LABS: UREA NITROGEN (BUN) 19 mg/dL (9-23)
[2017-03-29 14:06] LABS: QUANTITATIVE HCG < 4.0 MIU/ML
[2017-03-29 14:45] LABS: ADD MIUA? YES; BILIRUBIN NEGATIVE; BLOOD NEGATIVE; COLOR YELLOW ((YELLOW)); GLUCOSE (STRIP) NEGATIVE; KETONES NEGATIVE; LEUKOCYTES MODERATE; NITRITE NEGATIVE; PROTEIN (STRIP) 100; UROBILINOGEN 0.2 MG/DL (0.2-1.0)
[2017-03-29 15:20] LABS: CARBON DIOXIDE (BICARBONATE) 32.6 MEQ/L (20-31)
[2017-03-29 15:28] LABS: BACTERIA RARE /HPF; CALCIUM OXALATE CRYSTALS 4+ /HPF; EPITHELIAL CELLS RARE /HPF; MUCUS 1+ /LPF; RED BLOOD CELLS 15-20 /HPF (0-5); UCUL ADDED? NO; WHITE BLOOD CELLS 0-5 /HPF (0-5)
[2017-03-29 17:16] LABS: CHLORIDE 103 mEq/L (99-109); POTASSIUM 3.4 mEq/L (3.7-5.4); SODIUM 139 mEq/L (136-147)
[2017-03-29 17:17] LABS: C DIFF TOXIN NEGATIVE (NEGATIVE)
[2017-03-29 17:18] LABS: GLUCOSE 141 mg/dL (70-99)
[2017-03-29 17:19] LABS: ANION GAP 16 MEQ/L (2-14)
[2017-03-29 17:22] LABS: GFR ESTIMATE (CALCULATED) > 59 mL/min/
[2017-03-29 17:23] LABS: UREA NITROGEN (BUN) 17 mg/dL (9-23)
[2017-03-29 17:26] LABS: PROBE CHECK PASS; SPECIMEN PROCESSING CONTROL PASS
[2017-03-29] MEDS ORDERED: ZOFRAN ODT4 MG PO (18:23)
[2017-03-29 18:43] VITALS: BP 133/85
== END 2017-03-29 18:45 | disposition home or self-care (01) ==
LOC: EME 13:06
PROVIDERS: Physician Assistant
DX: E86.0 Dehydration (principal); E11.65 Type 2 diabetes mellitus with hyperglycemia; R19.7 Diarrhea, unspecified; J45.909 Unspecified asthma, uncomplicated; K21.9 Gastro-esophageal reflux disease without esophagitis; Z87.442 Personal history of urinary calculi; Z79.84 Long term (current) use of oral hypoglycemic drugs
CPT/HCPCS: 80048 91; 80053; 81003; 82010; 82803; 84702; 85027; 87493; 99281; 99285; J2405; J3010; J7030

== ENCOUNTER 2017-04-08 22:17 | Observation (INO) | payer OTHER ==
[~2017-04-08] VITALS: Ht 162.6 cm; Wt 113.7 kg
[~2017-04-08 22:17] MED LIST changes: +GLUCOPHAGE XR,500 MG PO
[2017-04-08 22:36] LABS: POINT-OF-CARE METER ID UU13113778
[2017-04-08 23:10] LABS: EOSINOPHIL (%) 1.6 % (0-5); EOSINOPHIL COUNT 0.2 K/uL (0-0.3); HEMATOCRIT 33.9 % (36.0-46.0); IMMATURE GRANULOCYTE (%) 1.4 % (0.0-0.7); IMMATURE GRANULOCYTE COUNT 0.1 K/uL; INSTRUMENT ABS NEUTROPHIL CT 6.1 K/uL; LYMPHOCYTE COUNT 2.6 K/uL (1.0-2.8); MCH 28.7 PG (29.0-34.0); MCHC 34.2 G/DL (30.0-36.0); MCV 83.9 FL (83-99); MEAN PLAT.VOLUME 10.2 uM^3 (9.5-12.4); MONOCYTE (%) 4.6 % (3-12); MONOCYTE COUNT 0.4 K/uL (0-0.8); NEUTROPHIL (%) 64.7 % (45-76); NEUTROPHIL COUNT 6.1 K/uL (1.8-6.4); PLATELET COUNT 272 K/uL (156-360); RBC DIS.WIDTH-CV 13.2 % (11.8-14.6); RBC DIS.WIDTH-SD 40.1 % (39-53); RED BLOOD COUNT 4.04 M/uL (3.80-5.20); WHITE BLOOD COUNT 9.4 K/uL (4.1-10.2)
[2017-04-08 23:11] LABS: CARBON DIOXIDE (BICARBONATE) 24.6 MEQ/L (20-31)
[2017-04-08 23:19] LABS: CHLORIDE 101 mEq/L (99-109); POTASSIUM 4.1 mEq/L (3.7-5.4); SODIUM 133 mEq/L (136-147)
[2017-04-08 23:20] LABS: INFLUENZA A VIRAL ANTIGEN NEGATIVE; INFLUENZA B VIRAL ANTIGEN NEGATIVE
[2017-04-08 23:23] LABS: ANION GAP 19 MEQ/L (2-14); TOTAL BILIRUBIN 0.2 mg/dL (0.0-1.0)
[2017-04-08 23:25] LABS: ALKALINE PHOSPHATASE 73 IU/L (3-129); GFR ESTIMATE (CALCULATED) > 59 mL/min/
[2017-04-08 23:26] LABS: UREA NITROGEN (BUN) 14 mg/dL (9-23)
[2017-04-08 23:35] LABS: QUANTITATIVE HCG < 4.0 MIU/ML
[2017-04-08 23:36] LABS: GLUCOSE 469 mg/dL (70-99)
[2017-04-08 23:49] LABS: BASE EXCESS -1.3 mEq/L (-3 to +3); BICARBONATE 22.4 mEq/L (22-26); CARBOXY HGB 1.6 % (0-5); COMMENTS - BLOOD GASES A+C+; METHEMOGLOBIN 1.4 % (0-1.5); O2 FLOW 0 L/MIN; PCO2 33 mm Hg (35-45); PO2 97 mm Hg (80-100); SITE LR; pH 7.44 (7.35-7.45)
[2017-04-08 23:50] LABS: DEVICE ROOM AIR; FI02 21 %; TOTAL RESP RATE 16 resp/min
[2017-04-09 00:20] LABS: ADD MIUA? NO; BILIRUBIN NEGATIVE; BLOOD NEGATIVE; COLOR STRAW ((YELLOW)); GLUCOSE (STRIP) >=500; KETONES NEGATIVE; LEUKOCYTES NEGATIVE; NITRITE NEGATIVE; PROTEIN (STRIP) 30; SPECIFIC GRAVITY 1.018 (1.000-1.030); UCUL ADDED? NO; UROBILINOGEN 0.2 MG/DL (0.2-1.0)
[2017-04-09 00:48] LABS: POINT-OF-CARE METER ID UU14100415
[2017-04-09] MEDS ORDERED: NOVOLOG 10100 UNITS/ SC (01:27)
[2017-04-09] MEDS ORDERED: GLUCOPHAGE1000 MG PO (01:34)
[2017-04-09] MEDS ORDERED: FLUARIX QU60 MCG/0.4 IM (01:35)
[2017-04-09] MEDS ORDERED: ALBUTEROL2.5 MG/3 M IH (01:35)
[2017-04-09] MEDS ORDERED: LANTUS 10100 UNITS/ SC ×3 (01:36→11:24)
[2017-04-09 04:20] LABS: POINT-OF-CARE METER ID UU13113702
[2017-04-09 04:31] LABS: CREATINE KINASE 37 IU/L (1-294)
[2017-04-09 04:35] VITALS: BP 121/77
[2017-04-09 05:15] LABS: EOSINOPHIL (%) 1.9 % (0-5); EOSINOPHIL COUNT 0.2 K/uL (0-0.3); HEMATOCRIT 32.5 % (36.0-46.0); IMMATURE GRANULOCYTE (%) 1.7 % (0.0-0.7); IMMATURE GRANULOCYTE COUNT 0.1 K/uL; INSTRUMENT ABS NEUTROPHIL CT 4.8 K/uL; LYMPHOCYTE COUNT 2.6 K/uL (1.0-2.8); MCH 28.5 PG (29.0-34.0); MCHC 33.5 G/DL (30.0-36.0); MCV 85.1 FL (83-99); MEAN PLAT.VOLUME 10.1 uM^3 (9.5-12.4); MONOCYTE (%) 5.1 % (3-12); MONOCYTE COUNT 0.4 K/uL (0-0.8); NEUTROPHIL COUNT 4.8 K/uL (1.8-6.4); PLATELET COUNT 252 K/uL (156-360); RBC DIS.WIDTH-CV 13.4 % (11.8-14.6); RBC DIS.WIDTH-SD 41.8 % (39-53); RED BLOOD COUNT 3.82 M/uL (3.80-5.20); WHITE BLOOD COUNT 8.1 K/uL (4.1-10.2)
[2017-04-09 05:54] LABS: ANION GAP 10 MEQ/L (2-14); CHLORIDE 106 MEQ/L (99-109); GFR ESTIMATE (CALCULATED) > 59 mL/min/; POTASSIUM 4.2 MEQ/L (3.7-5.4); SAMPLE HEMOLYSIS CHECK 0; SAMPLE ICTERIC CHECK 0; SAMPLE LIPEMIA CHECK 1; SODIUM 138 MEQ/L (136-147); UREA NITROGEN (BUN) 11 mg/dL (9-23)
[2017-04-09 06:41] LABS: GLUCOSE 162 mg/dL (70-99)
[2017-04-09 08:07] LABS: POINT-OF-CARE METER ID UU13113831
[2017-04-09 08:34] VITALS: BP 117/60
[2017-04-09 11:24] VITALS: BP 122/76
[2017-04-09] MEDS ORDERED: LANCETS THIN1 EACH MC (11:24)
[2017-04-09] MEDS ORDERED: TEST STRIPS MC (11:25)
[2017-04-09] MEDS ORDERED: INSULIN SYRING1 EA53 MC (11:25)
[2017-04-09 12:14] LABS: POINT-OF-CARE METER ID UU14162513
== END 2017-04-09 13:09 | disposition home or self-care (01) ==
LOC: EME 22:17 → EDOF 04-09 03:35 → ENRESERV 04-09 03:37 → 5WEST 04-09 04:25
PROVIDERS: Emergency Medicine; Hospitalist
DX: E11.65 Type 2 diabetes mellitus with hyperglycemia (principal); E86.0 Dehydration; E87.2 Acidosis; M79.1 Myalgia; R10.12 Left upper quadrant pain; J45.909 Unspecified asthma, uncomplicated; E03.9 Hypothyroidism, unspecified; Z87.442 Personal history of urinary calculi; Z86.19 Personal history of other infectious and parasitic diseases; D64.9 Anemia, unspecified; E66.01 Morbid (severe) obesity due to excess calories; Z68.41 Body mass index [BMI] 40.0-44.9, adult; I10 Essential (primary) hypertension; K76.0 Fatty (change of) liver, not elsewhere classified; Z90.49 Acquired absence of other specified parts of digestive tract; Z79.84 Long term (current) use of oral hypoglycemic drugs; Z90.722 Acquired absence of ovaries, bilateral; Z79.818 Long term (current) use of other agents affecting estrogen receptors and estrogen levels; Z88.5 Allergy status to narcotic agent; Z88.6 Allergy status to analgesic agent; Z88.8 Allergy status to other drugs, medicaments and biological substances; Z91.018 Allergy to other foods
CPT/HCPCS: 36600; 71020; 74177; 80048; 80053; 81003; 82010; 82550; 82550 91; 82803; 82948; 83605; 84702; 85025; 87040; 87502; 87651 90; 94640; 99202; 99281; 99285; G0378; J1200; J1650; J1815; J2405; J3010; J7030

== ENCOUNTER → 2017-06-11 | Outpatient (CLI) | payer OTHER ==
[~2017-06-11] VITALS: Ht 162.6 cm; Wt 115.2 kg
[~2017-06-11] MED LIST changes: +ALBUTEROL2.5 MG/3 M IH; +AZITHROMYCIN500 M1 PO; +CYANOCOBALAM1000 MCG PO; +FLUARIX QU60 MCG/0.4 IM; +GUMMI BEAR MUL1 EACH PO; +INSULIN SYRING1 EA53 MC; +LANCETS THIN1 EACH MC; +LEVO-T75 MCG PO; +METFORMIN HCL1000 M3 PO; +TEST STRIPS MC; +TRULICITY0.75 MG/0. SC
[2017-06-11 09:13] LABS: POINT-OF-CARE METER ID UU14107333
== END | disposition home or self-care (01) ==
LOC: AMB 07:59
PROVIDERS: Internal Medicine Gastroenterology
PROC: 0DBE8ZX Excision of Large Intestine, Via Natural or Artificial Opening Endoscopic, Diagnostic (ICD-10-PCS; principal; 2017-06-11)
DX: K52.9 Noninfective gastroenteritis and colitis, unspecified (principal); D64.9 Anemia, unspecified; E11.9 Type 2 diabetes mellitus without complications; Z79.84 Long term (current) use of oral hypoglycemic drugs; E66.9 Obesity, unspecified; Z68.41 Body mass index [BMI] 40.0-44.9, adult; F41.9 Anxiety disorder, unspecified; Z88.5 Allergy status to narcotic agent; Z88.8 Allergy status to other drugs, medicaments and biological substances
CPT/HCPCS: 82948; 88305

== ENCOUNTER 2017-06-23 18:38 | Emergency (ER) | payer OTHER | END 2017-06-23 19:20 | disposition left against medical advice (07) | LOC: EME 18:38 | DX: M54.2 Cervicalgia (principal); R51 Headache; Z53.21 Procedure and treatment not carried out due to patient leaving prior to being seen by health care provider ==

== ENCOUNTER 2017-07-01 22:29 | Emergency (ER) | payer OTHER ==
[~2017-07-01] VITALS: Ht 162.6 cm; Wt 113.2 kg
[2017-07-01 22:51] LABS: HEMATOCRIT 35.1 % (36.0-46.0); HEMOGLOBIN 11.4 G/DL (11.9-15.5); MCH 27.6 PG (29.0-34.0); MCHC 32.5 G/DL (30.0-36.0); PLATELET COUNT 303 K/uL (156-360); RBC DIS.WIDTH-CV 13.1 % (11.8-14.6); RBC DIS.WIDTH-SD 40.4 % (39-53); RED BLOOD COUNT 4.13 M/uL (3.80-5.20); WHITE BLOOD COUNT 8.8 K/uL (4.1-10.2)
[2017-07-01 23:01] LABS: ALBUMIN 3.7 g/dL (3.2-4.8); CHLORIDE 104 mEq/L (99-109); POTASSIUM 4.3 mEq/L (3.7-5.4); SODIUM 140 mEq/L (136-147)
[2017-07-01 23:03] LABS: GLUCOSE 166 mg/dL (70-99); TOTAL PROTEIN 6.8 g/dL (6.4-8.3)
[2017-07-01 23:05] LABS: TOTAL BILIRUBIN 0.2 mg/dL (0.0-1.0)
[2017-07-01 23:07] LABS: ALKALINE PHOSPHATASE 63 IU/L (3-129); CREATININE 0.8 mg/dL (0.6-1.3); GFR ESTIMATE (CALCULATED) > 59 mL/min/
[2017-07-01 23:08] LABS: AST (GOT) 23 IU/L (2-34); UREA NITROGEN (BUN) 16 mg/dL (9-23)
[2017-07-01 23:10] LABS: ALT (GPT) 32 IU/L (3-49)
[2017-07-01 23:19] LABS: QUANTITATIVE HCG < 4.0 MIU/ML
[2017-07-02 00:58] LABS: APPEARANCE SL.HAZY ((CLEAR)); BILIRUBIN NEGATIVE; BLOOD NEGATIVE; COLOR YELLOW ((YELLOW)); GLUCOSE (STRIP) NEGATIVE; KETONES NEGATIVE; LEUKOCYTES NEGATIVE; NITRITE NEGATIVE; PROTEIN (STRIP) 100; SPECIFIC GRAVITY 1.028 (1.000-1.030)
[2017-07-02 01:04] LABS: BACTERIA RARE /HPF; CALCIUM OXALATE CRYSTALS 4+ /HPF; EPITHELIAL CELLS RARE /HPF; HYALINE CASTS 0-5 /LPF; MUCUS 1+ /LPF; RED BLOOD CELLS 0-5 /HPF (0-5); UCUL ADDED? NO; WHITE BLOOD CELLS 0-5 /HPF (0-5)
[2017-07-02 01:50] VITALS: BP 121/70
== END 2017-07-02 02:00 | disposition home or self-care (01) ==
LOC: EME 22:29
DX: R10.32 Left lower quadrant pain (principal); R11.2 Nausea with vomiting, unspecified; R19.7 Diarrhea, unspecified; Z90.49 Acquired absence of other specified parts of digestive tract; Z90.710 Acquired absence of both cervix and uterus; Z90.722 Acquired absence of ovaries, bilateral; Z87.442 Personal history of urinary calculi; J45.909 Unspecified asthma, uncomplicated; E11.9 Type 2 diabetes mellitus without complications; Z79.4 Long term (current) use of insulin; Z79.890 Hormone replacement therapy
CPT/HCPCS: 74177; 80053; 81003; 82948; 84702; 85027; 99281; 99285; J1200; J2405; J2930; J3010; J7030

== ENCOUNTER 2017-07-16 06:57 | Emergency (ER) | payer OTHER ==
[~2017-07-16] VITALS: Ht 162.6 cm; Wt 113.6 kg
[2017-07-16 08:42] LABS: HEMATOCRIT 36.3 % (36.0-46.0); HEMOGLOBIN 11.9 G/DL (11.9-15.5); MCH 27.4 PG (29.0-34.0); MCHC 32.8 G/DL (30.0-36.0); MCV 83.6 FL (83-99); PLATELET COUNT 273 K/uL (156-360); RBC DIS.WIDTH-CV 13.2 % (11.8-14.6); RBC DIS.WIDTH-SD 40.1 % (39-53); RED BLOOD COUNT 4.34 M/uL (3.80-5.20); WHITE BLOOD COUNT 6.2 K/uL (4.1-10.2)
[2017-07-16 08:50] LABS: CHLORIDE 105 mEq/L (99-109); POTASSIUM 3.8 mEq/L (3.7-5.4); SODIUM 139 mEq/L (136-147)
[2017-07-16 08:52] LABS: GLUCOSE 253 mg/dL (70-99)
[2017-07-16 08:56] LABS: CREATININE 0.7 mg/dL (0.6-1.3); GFR ESTIMATE (CALCULATED) > 59 mL/min/
[2017-07-16 08:57] LABS: UREA NITROGEN (BUN) 20 mg/dL (9-23)
[2017-07-16] MEDS ORDERED: REGLAN5 MG PO (11:14)
[2017-07-16 11:49] VITALS: BP 122/92
== END 2017-07-16 11:50 | disposition home or self-care (01) ==
LOC: EME 06:57
PROVIDERS: Nurse Practitioner Family
DX: B34.9 Viral infection, unspecified (principal); R05 Cough; R42 Dizziness and giddiness; E11.65 Type 2 diabetes mellitus with hyperglycemia; K21.9 Gastro-esophageal reflux disease without esophagitis; J45.909 Unspecified asthma, uncomplicated; F32.9 Major depressive disorder, single episode, unspecified; F41.9 Anxiety disorder, unspecified; Z79.4 Long term (current) use of insulin; Z98.61 Coronary angioplasty status; Z87.442 Personal history of urinary calculi; Z91.041 Radiographic dye allergy status; Z88.5 Allergy status to narcotic agent; Z88.6 Allergy status to analgesic agent; Z88.8 Allergy status to other drugs, medicaments and biological substances
CPT/HCPCS: 71046; 80048; 81003; 85027; 99281; 99284; J2765

== ENCOUNTER 2017-09-03 20:03 | Emergency (ER) | payer OTHER ==
[~2017-09-03] VITALS: Ht 162.6 cm; Wt 116.9 kg
[~2017-09-03 20:03] MED LIST changes: +REGLAN5 MG PO
[2017-09-03 20:40] LABS: APPEARANCE CLEAR ((CLEAR)); BILIRUBIN NEGATIVE; BLOOD NEGATIVE; COLOR YELLOW ((YELLOW)); GLUCOSE (STRIP) NEGATIVE; KETONES NEGATIVE; LEUKOCYTES NEGATIVE; NITRITE NEGATIVE; PROTEIN (STRIP) 100; UROBILINOGEN 0.2 MG/DL (0.2-1.0)
[2017-09-03 20:46] LABS: HEMATOCRIT 34.9 % (36.0-46.0); HEMOGLOBIN 11.7 G/DL (11.9-15.5); MCHC 33.5 G/DL (30.0-36.0); MCV 83.5 FL (83-99); PLATELET COUNT 279 K/uL (156-360); RBC DIS.WIDTH-CV 13.4 % (11.8-14.6); RBC DIS.WIDTH-SD 40.5 % (39-53); RED BLOOD COUNT 4.18 M/uL (3.80-5.20); WHITE BLOOD COUNT 8.9 K/uL (4.1-10.2)
[2017-09-03 20:54] LABS: CHLORIDE 101 mEq/L (99-109); POTASSIUM 3.9 mEq/L (3.7-5.4); SODIUM 139 mEq/L (136-147)
[2017-09-03 20:55] LABS: GLUCOSE 179 mg/dL (70-99)
[2017-09-03 20:57] LABS: BACTERIA RARE /HPF; EPITHELIAL CELLS RARE /HPF; MUCUS TRACE /LPF; RED BLOOD CELLS 0-5 /HPF (0-5); UCUL ADDED? NO; WHITE BLOOD CELLS 0-5 /HPF (0-5)
[2017-09-03 20:59] LABS: CREATININE 0.7 mg/dL (0.6-1.3); GFR ESTIMATE (CALCULATED) > 59 mL/min/
[2017-09-03 21:00] LABS: UREA NITROGEN (BUN) 15 mg/dL (9-23)
[2017-09-03 21:33] LABS: ALBUMIN 3.9 g/dL (3.2-4.8)
[2017-09-03 21:36] LABS: TOTAL PROTEIN 6.9 g/dL (6.4-8.3)
[2017-09-03 21:38] LABS: TOTAL BILIRUBIN 0.2 mg/dL (0.0-1.0)
[2017-09-03 21:39] LABS: ALKALINE PHOSPHATASE 79 IU/L (3-129)
[2017-09-03 21:41] LABS: AST (GOT) 28 IU/L (2-34); DIRECT BILIRUBIN 0.1 mg/dL (0.0-0.3)
[2017-09-03 21:42] LABS: ALT (GPT) 33 IU/L (3-49)
[2017-09-03 21:43] LABS: LIPASE 38 U/L (1.0-51.0)
[2017-09-03] MEDS ORDERED: BENTYL10 MG PO (23:40)
[2017-09-03] MEDS ORDERED: ZOFRAN4 MG SL (23:40)
[2017-09-04 00:16] VITALS: BP 105/78
== END 2017-09-04 00:17 | disposition home or self-care (01) ==
LOC: EME 20:03
DX: R10.32 Left lower quadrant pain (principal); R11.2 Nausea with vomiting, unspecified; R19.7 Diarrhea, unspecified; M54.9 Dorsalgia, unspecified; K76.0 Fatty (change of) liver, not elsewhere classified; K57.30 Diverticulosis of large intestine without perforation or abscess without bleeding; Z90.49 Acquired absence of other specified parts of digestive tract; Z90.710 Acquired absence of both cervix and uterus; Z90.722 Acquired absence of ovaries, bilateral; Z87.442 Personal history of urinary calculi; J45.909 Unspecified asthma, uncomplicated; E11.9 Type 2 diabetes mellitus without complications; Z79.4 Long term (current) use of insulin; Z79.890 Hormone replacement therapy
CPT/HCPCS: 74177; 80048; 80076; 81003; 83690; 85027; 99281; 99285; J1200; J2405; J3010; J7030

== ENCOUNTER 2017-09-14 17:57 | Emergency (ER) | payer OTHER ==
[~2017-09-14] VITALS: Ht 162.6 cm; Wt 117.8 kg
[~2017-09-14 17:57] MED LIST changes: +ZOFRAN4 MG SL
[2017-09-14 19:39] LABS: HEMATOCRIT 35.8 % (36.0-46.0); HEMOGLOBIN 12.2 G/DL (11.9-15.5); MCH 28.3 PG (29.0-34.0); MCHC 34.1 G/DL (30.0-36.0); MCV 83.1 FL (83-99); PLATELET COUNT 286 K/uL (156-360); RBC DIS.WIDTH-CV 13.4 % (11.8-14.6); RBC DIS.WIDTH-SD 40.5 % (39-53); RED BLOOD COUNT 4.31 M/uL (3.80-5.20); WHITE BLOOD COUNT 7.9 K/uL (4.1-10.2)
[2017-09-14 19:49] LABS: ALBUMIN 3.8 g/dL (3.2-4.8); CHLORIDE 101 mEq/L (99-109); POTASSIUM 3.8 mEq/L (3.7-5.4); SODIUM 137 mEq/L (136-147)
[2017-09-14 19:52] LABS: GLUCOSE 154 mg/dL (70-99); TOTAL PROTEIN 7.2 g/dL (6.4-8.3)
[2017-09-14 19:54] LABS: TOTAL BILIRUBIN 0.2 mg/dL (0.0-1.0)
[2017-09-14 19:55] LABS: ALKALINE PHOSPHATASE 89 IU/L (3-129); CREATININE 0.7 mg/dL (0.6-1.3); GFR ESTIMATE (CALCULATED) > 59 mL/min/
[2017-09-14 19:56] LABS: UREA NITROGEN (BUN) 13 mg/dL (9-23)
[2017-09-14 19:57] LABS: AST (GOT) 21 IU/L (2-34)
[2017-09-14 19:58] LABS: ALT (GPT) 27 IU/L (3-49)
[2017-09-14 20:01] LABS: TROP-I INTERPRETATION NEGATIVE; TROPONIN-I < 0.01 ng/mL (0.0-0.30)
[2017-09-14 23:13] LABS: TROP-I INTERPRETATION NEGATIVE; TROPONIN-I < 0.01 ng/mL (0.0-0.30)
[2017-09-14 23:26] VITALS: BP 139/93
== END 2017-09-14 23:31 | disposition home or self-care (01) ==
LOC: EME 17:57
PROVIDERS: Nurse Practitioner Family
DX: R07.9 Chest pain, unspecified (principal); K21.9 Gastro-esophageal reflux disease without esophagitis; J45.909 Unspecified asthma, uncomplicated; F32.9 Major depressive disorder, single episode, unspecified; D64.9 Anemia, unspecified; Z87.442 Personal history of urinary calculi; F41.9 Anxiety disorder, unspecified; Z88.6 Allergy status to analgesic agent
CPT/HCPCS: 71046; 80053; 84484; 85027; 93005; 99281; 99284

== ENCOUNTER 2017-09-20 20:08 | Emergency (ER) | payer OTHER ==
[~2017-09-20] VITALS: Ht 162.6 cm; Wt 118.1 kg
[2017-09-20 20:25] VITALS: BP 122/83
[2017-09-20 21:12] LABS: HEMATOCRIT 34.8 % (36.0-46.0); HEMOGLOBIN 11.7 G/DL (11.9-15.5); MCH 28.3 PG (29.0-34.0); MCHC 33.6 G/DL (30.0-36.0); MCV 84.3 FL (83-99); PLATELET COUNT 258 K/uL (156-360); RBC DIS.WIDTH-CV 13.5 % (11.8-14.6); RBC DIS.WIDTH-SD 41.6 % (39-53); RED BLOOD COUNT 4.13 M/uL (3.80-5.20); WHITE BLOOD COUNT 7.5 K/uL (4.1-10.2)
[2017-09-20 21:33] LABS: ALBUMIN 3.7 g/dL (3.2-4.8)
[2017-09-20 21:34] LABS: CHLORIDE 101 mEq/L (99-109); POTASSIUM 3.9 mEq/L (3.7-5.4); SODIUM 136 mEq/L (136-147)
[2017-09-20 21:36] LABS: GLUCOSE 298 mg/dL (70-99); TOTAL PROTEIN 7.1 g/dL (6.4-8.3)
[2017-09-20 21:39] LABS: ALKALINE PHOSPHATASE 82 IU/L (3-129)
[2017-09-20 21:40] LABS: CREATININE 0.7 mg/dL (0.6-1.3); GFR ESTIMATE (CALCULATED) > 59 mL/min/
[2017-09-20 21:41] LABS: AST (GOT) 30 IU/L (2-34); UREA NITROGEN (BUN) 13 mg/dL (9-23)
[2017-09-20 21:43] LABS: ALT (GPT) 32 IU/L (3-49); LIPASE 51 U/L (1.0-51.0)
[2017-09-20 21:50] LABS: QUANTITATIVE HCG < 4.0 MIU/ML
[2017-09-20 21:53] LABS: TOTAL BILIRUBIN 0.1 mg/dL (0.0-1.0)
[2017-09-20] MEDS ORDERED: ZOFRAN ODT4 MG PO (23:47)
[2017-09-20 23:52] LABS: APPEARANCE SL.HAZY ((CLEAR)); BILIRUBIN NEGATIVE; BLOOD NEGATIVE; COLOR YELLOW ((YELLOW)); GLUCOSE (STRIP) >=500; KETONES NEGATIVE; LEUKOCYTES NEGATIVE; NITRITE NEGATIVE; PROTEIN (STRIP) 100; SPECIFIC GRAVITY 1.022 (1.000-1.030); UROBILINOGEN 0.2 MG/DL (0.2-1.0)
[2017-09-21 00:22] LABS: BACTERIA RARE /HPF; EPITHELIAL CELLS RARE /HPF; MUCUS TRACE /LPF; RED BLOOD CELLS 0-5 /HPF (0-5); UCUL ADDED? NO; WHITE BLOOD CELLS 0-5 /HPF (0-5)
== END 2017-09-21 00:44 | disposition home or self-care (01) ==
LOC: EME 20:08
DX: E11.65 Type 2 diabetes mellitus with hyperglycemia (principal); R11.2 Nausea with vomiting, unspecified; E86.0 Dehydration; E66.01 Morbid (severe) obesity due to excess calories; Z68.41 Body mass index [BMI] 40.0-44.9, adult; K21.9 Gastro-esophageal reflux disease without esophagitis; J45.909 Unspecified asthma, uncomplicated; F41.9 Anxiety disorder, unspecified; F32.9 Major depressive disorder, single episode, unspecified; Z87.442 Personal history of urinary calculi; Z79.4 Long term (current) use of insulin; Z90.49 Acquired absence of other specified parts of digestive tract; Z91.041 Radiographic dye allergy status; Z88.5 Allergy status to narcotic agent; Z88.6 Allergy status to analgesic agent; Z88.8 Allergy status to other drugs, medicaments and biological substances
CPT/HCPCS: 80053; 81003; 82948; 83690; 84702; 85027; 99281; 99285; J2405; J7030

== ENCOUNTER 2017-10-20 09:17 | Emergency (ER) | payer OTHER ==
[~2017-10-20] VITALS: Ht 162.6 cm; Wt 118.2 kg
[2017-10-20 09:58] LABS: HEMATOCRIT 36.5 % (36.0-46.0); HEMOGLOBIN 12.2 G/DL (11.9-15.5); MCH 27.9 PG (29.0-34.0); MCHC 33.4 G/DL (30.0-36.0); MCV 83.3 FL (83-99); PLATELET COUNT 263 K/uL (156-360); RBC DIS.WIDTH-CV 13.6 % (11.8-14.6); RBC DIS.WIDTH-SD 41.1 % (39-53); RED BLOOD COUNT 4.38 M/uL (3.80-5.20); WHITE BLOOD COUNT 6.9 K/uL (4.1-10.2)
[2017-10-20 10:07] LABS: APPEARANCE CLEAR ((CLEAR)); BILIRUBIN NEGATIVE; BLOOD NEGATIVE; COLOR YELLOW ((YELLOW)); GLUCOSE (STRIP) NEGATIVE; KETONES NEGATIVE; LEUKOCYTES NEGATIVE; NITRITE NEGATIVE; PROTEIN (STRIP) >=500; SPECIFIC GRAVITY 1.024 (1.000-1.030); UROBILINOGEN 0.2 MG/DL (0.2-1.0)
[2017-10-20 10:10] LABS: BACTERIA NONE SEEN /HPF; EPITHELIAL CELLS RARE /HPF; MUCUS TRACE /LPF; RED BLOOD CELLS 0-5 /HPF (0-5); UCUL ADDED? NO; WHITE BLOOD CELLS 0-5 /HPF (0-5)
[2017-10-20 10:14] LABS: CHLORIDE 105 mEq/L (99-109); SODIUM 139 mEq/L (136-147)
[2017-10-20 10:15] LABS: GLUCOSE 168 mg/dL (70-99)
[2017-10-20 10:19] LABS: CREATININE 0.6 mg/dL (0.6-1.3); GFR ESTIMATE (CALCULATED) > 59 mL/min/
[2017-10-20 10:20] LABS: UREA NITROGEN (BUN) 14 mg/dL (9-23)
[2017-10-20 12:59] LABS: ALBUMIN 3.8 g/dL (3.2-4.8)
[2017-10-20 13:00] LABS: AMYLASE 46 IU/L (1-118)
[2017-10-20 13:02] LABS: TOTAL PROTEIN 6.7 g/dL (6.4-8.3)
[2017-10-20 13:04] LABS: TOTAL BILIRUBIN 0.3 mg/dL (0.0-1.0)
[2017-10-20 13:05] LABS: ALKALINE PHOSPHATASE 83 IU/L (3-129)
[2017-10-20 13:07] LABS: AST (GOT) 34 IU/L (2-34); DIRECT BILIRUBIN 0.1 mg/dL (0.0-0.3)
[2017-10-20 13:08] LABS: ALT (GPT) 31 IU/L (3-49); LIPASE 68 U/L (1.0-51.0)
[2017-10-20] MEDS ORDERED: ZOFRAN ODT4 MG PO (13:15)
[2017-10-20] MEDS ORDERED: BENTYL20 MG PO (13:15)
[2017-10-20 14:06] VITALS: BP 120/68
== END 2017-10-20 14:07 | disposition home or self-care (01) ==
LOC: EME 09:17
DX: R10.9 Unspecified abdominal pain (principal); K76.0 Fatty (change of) liver, not elsewhere classified; K21.9 Gastro-esophageal reflux disease without esophagitis; J45.909 Unspecified asthma, uncomplicated; F41.9 Anxiety disorder, unspecified; F32.9 Major depressive disorder, single episode, unspecified; Z87.442 Personal history of urinary calculi; Z90.49 Acquired absence of other specified parts of digestive tract; Z90.710 Acquired absence of both cervix and uterus; Z91.041 Radiographic dye allergy status; Z88.5 Allergy status to narcotic agent; Z88.6 Allergy status to analgesic agent; Z88.8 Allergy status to other drugs, medicaments and biological substances
CPT/HCPCS: 74176; 80048; 80076; 81003; 82150; 83690; 85027; 99281; 99284; J3010

== ENCOUNTER 2017-11-13 23:17 | Observation (INO) | payer OTHER ==
[~2017-11-13] VITALS: Ht 165.1 cm; Wt 116.9 kg
[~2017-11-13 23:17] MED LIST changes: +LEVO-T175 MCG PO; -LEVO-T75 MCG PO
[2017-11-13 23:37] LABS: HEMATOCRIT 36.9 % (36.0-46.0); HEMOGLOBIN 12.3 G/DL (11.9-15.5); MCH 27.7 PG (29.0-34.0); MCHC 33.3 G/DL (30.0-36.0); MCV 83.1 FL (83-99); PLATELET COUNT 279 K/uL (156-360); RBC DIS.WIDTH-CV 13.8 % (11.8-14.6); RBC DIS.WIDTH-SD 41.7 % (39-53); RED BLOOD COUNT 4.44 M/uL (3.80-5.20); WHITE BLOOD COUNT 9.8 K/uL (4.1-10.2)
[2017-11-13 23:48] LABS: ALBUMIN 3.9 g/dL (3.2-4.8); CHLORIDE 103 mEq/L (99-109); POTASSIUM 4.5 mEq/L (3.7-5.4); SODIUM 140 mEq/L (136-147)
[2017-11-13 23:50] LABS: GLUCOSE 83 mg/dL (70-99)
[2017-11-13 23:51] LABS: TOTAL PROTEIN 7.4 g/dL (6.4-8.3)
[2017-11-13 23:52] LABS: TOTAL BILIRUBIN 0.3 mg/dL (0.0-1.0)
[2017-11-13 23:54] LABS: ALKALINE PHOSPHATASE 82 IU/L (3-129); CREATININE 0.6 mg/dL (0.6-1.3); GFR ESTIMATE (CALCULATED) > 59 mL/min/
[2017-11-13 23:55] LABS: UREA NITROGEN (BUN) 13 mg/dL (9-23)
[2017-11-13 23:56] LABS: AST (GOT) 42 IU/L (2-34)
[2017-11-13 23:57] LABS: ALT (GPT) 32 IU/L (3-49)
[2017-11-14 00:04] LABS: QUANTITATIVE HCG < 4.0 MIU/ML
[2017-11-14 03:30] LABS: APPEARANCE SL.HAZY ((CLEAR)); BILIRUBIN NEGATIVE; BLOOD NEGATIVE; COLOR YELLOW ((YELLOW)); GLUCOSE (STRIP) NEGATIVE; KETONES NEGATIVE; LEUKOCYTES NEGATIVE; NITRITE NEGATIVE; PROTEIN (STRIP) >=500; SPECIFIC GRAVITY 1.027 (1.000-1.030); UROBILINOGEN 0.2 MG/DL (0.2-1.0)
[2017-11-14 03:53] LABS: BACTERIA RARE /HPF; EPITHELIAL CELLS RARE /HPF; MUCUS 2+ /LPF; RED BLOOD CELLS 0-5 /HPF (0-5); UCUL ADDED? NO; WHITE BLOOD CELLS 0-5 /HPF (0-5)
[2017-11-14 05:46] LABS: TROP-I INTERPRETATION NEGATIVE; TROPONIN-I < 0.01 ng/mL (0.0-0.30)
[2017-11-14 07:12] LABS: HEMATOCRIT 35.8 % (36.0-46.0); HEMOGLOBIN 11.9 G/DL (11.9-15.5); MCH 27.6 PG (29.0-34.0); MCHC 33.2 G/DL (30.0-36.0); MCV 83.1 FL (83-99); PLATELET COUNT 267 K/uL (156-360); RBC DIS.WIDTH-CV 13.9 % (11.8-14.6); RBC DIS.WIDTH-SD 42.2 % (39-53); RED BLOOD COUNT 4.31 M/uL (3.80-5.20); WHITE BLOOD COUNT 8.8 K/uL (4.1-10.2)
[2017-11-14 07:35] VITALS: BP 125/75
[2017-11-14] MEDS ORDERED: CONTRAVE ER 8-1 EACH PO (11:15)
[2017-11-14] MEDS ORDERED: DIABETA5 MG PO (11:15)
[2017-11-14 11:49] VITALS: BP 114/59
== END 2017-11-14 14:35 | disposition home or self-care (01) ==
LOC: EME 23:17 → EDOF 11-14 06:38 → ENRESERV 11-14 06:40 → 4SOUTH 11-14 07:37
PROVIDERS: Emergency Medicine; Hospitalist; Internal Medicine
DX: E11.43 Type 2 diabetes mellitus with diabetic autonomic (poly)neuropathy (principal); J45.909 Unspecified asthma, uncomplicated; K59.00 Constipation, unspecified; E66.01 Morbid (severe) obesity due to excess calories; Z68.41 Body mass index [BMI] 40.0-44.9, adult; R16.0 Hepatomegaly, not elsewhere classified; F41.9 Anxiety disorder, unspecified; F32.9 Major depressive disorder, single episode, unspecified; Z90.710 Acquired absence of both cervix and uterus; Z90.49 Acquired absence of other specified parts of digestive tract; Z91.018 Allergy to other foods; Z91.041 Radiographic dye allergy status; Z88.5 Allergy status to narcotic agent; Z88.8 Allergy status to other drugs, medicaments and biological substances; Z79.4 Long term (current) use of insulin
CPT/HCPCS: 74018; 80053; 81003; 82948; 84484; 84702; 85027; 93005; 99281; 99285; C9113; G0378; J1200; J1630; J1650; J2060; J2405; J2765; J7030